=== PATIENT | female | born 1965 | race Caucasian/White ===

== ENCOUNTER 2017-08-11 08:53 | Inpatient (IN) | payer BC, OTHER ==
[2017-08-04 12:08] VITALS: BMI 23.0
[~2017-08-11 08:53] MED LIST: CEFAZOLIN 1 GM/D5W 1 GRAM/50 ML BAG IVPB ONE; ROPIVICAINE 0.2%/MORPH PF/KETOROLAC - 51ML DISP.SYRINGE IA ONE; TRANEXAMIC ACID 1000 MG/10 ML VIAL IVPUSH ONE
[2017-08-11] MEDS ORDERED: ceFAZolin SODIUM 1 GM VIAL ONE ×2 (11:33→13:06)
[2017-08-11] MEDS ORDERED: VANCOMYCIN 1,000 MG VIAL (RESTRICTED TO ID ONLY) ONE (11:33)
[2017-08-11] MEDS: oxyCODONE HCL 10 MG SUSTAINED ACTING TABLET PO ONE (11:35)
[2017-08-11] MEDS: GABAPENTIN 300 MG CAPSULE (FP) PO ONE (11:35)
[2017-08-11] MEDS: CELECOXIB 200 MG CAPSULE PO ONE (11:35)
[2017-08-11] MEDS: PANTOPRAZOLE 40 MG TABLET (FP) PO ONE (11:35)
[2017-08-11] MEDS ORDERED: MIDAZOLAM HCL 2 MG/2 ML SINGLE DOSE VIAL ONE (11:54)
[2017-08-11] MEDS ORDERED: DEXAMETHASONE SOD PHOSPHATE/PF 10 MG/ML SDV ONE (11:55)
[2017-08-11] MEDS ORDERED: ROPIVACAINE HCL 0.5% 30ML VIAL ONE (11:55)
--- NOTE | 2017-08-11 12:14 | HP ---
History & Physical Update - History History: No Change - Physical Physical: No Change - Assessment Assessment: No Change - Plan Plan: No Change
[2017-08-11] MEDS ORDERED: PROPOFOL 20 ML ONE ×4 (12:51→15:40)
[2017-08-11] MEDS ORDERED: TRANEXAMIC ACID 1000 MG/10 ML VIAL ONE ×2 (13:06→15:04)
[2017-08-11] MEDS ORDERED: ePHEDrine SULFATE 50 MG/1 ML AMPULE ONE (13:13)
[2017-08-11] MEDS ORDERED: VANCOMYCIN 1,000 MG VIAL (RESTRICTED TO ID ONLY) IVPB ONE (14:52)
[2017-08-11] MEDS ORDERED: TRANEXAMIC ACID 1000 MG/10 ML VIAL IVPUSH ONE (14:53)
[2017-08-11] MEDS ORDERED: ROPIVICAINE 0.2%/MORPH PF/KETOROLAC - 51ML DISP.SYRINGE IA ONE ×2 (14:54→15:38)
[2017-08-11] MEDS ORDERED: ONDANSETRON 4 MG/2 ML VIAL IVPUSH PRN ×2 (16:21→16:25)
[2017-08-11] MEDS ORDERED: MAGNESIUM HYDROX 2400MG/30ML ORAL SUSPENSION 30 ML CUP PO PRN (16:25)
[2017-08-11] MEDS ORDERED: MAG HYDROX/AL HYDROX/SIMETH 30 ML UNIT-DOSE CUP PO PRN (16:25)
[2017-08-11] MEDS ORDERED: ELECTROLYTE-148 SOLN 1,000 ML IV SCH (16:30)
--- NOTE | 2017-08-11 16:33 | OP ---
Operative Note - Note: Operative Date: 08/11/17 Pre-Operative Diagnosis: Right hip osteoarthritis Operation: Right Makoplasty total hip Implants: Tritanium hemispherical cluster hole shell size 50 D. Torex 6.5 cancellous bone screw. Trident X3 0 degree polyethylene insert size 36 D. AccoladeII 132 neck angle hip stem size 3, 30, 102. Biolox delta ceramic V40 femoral head size 36, +0 Post-Operative Diagnosis: Same as Pre-op Surgeon: Clay Jesus Entry Table Operator: Jacquelyn Higgins Anesthesiologist/CIRCUIT BOARD DRAFTER: Sarai Quintero Anesthesia: Spinal (with block and sedation) Estimated Blood Loss (mls): 200 Fluid Volume Replaced (mls): 2,000
[2017-08-11] MEDS ORDERED: ALPRAZolam 0.25 MG TABLET PO PRN (16:34)
[2017-08-11] MEDS ORDERED: MONTELUKAST NA 10 MG TABLET PO PRN (16:34)
--- NOTE | 2017-08-11 16:36 | SURG ---
Surgery Pharmacy Graduate Intern Note Pharmacy Graduate Intern: Jacquelyn Higgins PA-C Date of Service: 08/11/17 Diagnosis: right hip osteoarthritis Procedure: Makoplasty right total hip I was present for the entirety of the operative procedure. For further detail, please refer to operative report. Visit type - Case Type Case Type: Scheduled Admission - Emergency Emergency Visit: No - New patient This patient is new to me today: Yes Date on this admission: 08/11/17
[2017-08-11] MEDS: KETOROLAC TROMETHAMINE 30 MG/1 ML VIAL IVPUSH SCH ×2 (17:00→23:17)
[2017-08-11] MEDS ORDERED: traMADol HCL 50 MG TABLET PO ONE (17:00)
[2017-08-11] MEDS: ACETAMINOPHEN 1000 MG/100 ML VIAL (NON FORMULARY) IVPB ONE (17:00)
[2017-08-11] MEDS: CEFAZOLIN 1 GM PUSH 1 GM/10 ML DISP.SYRIN IVPUSH SCH (21:06)
[2017-08-11] MEDS: SENNOSIDES/DOCUSATE COMBO (SENNA PLUS) TABLET (UD) PO SCH (21:07)
[2017-08-11] MEDS: oxyCODONE HCL 10 MG SUSTAINED ACTING TABLET PO SCH (21:07)
[2017-08-11] MEDS: GABAPENTIN 300 MG CAPSULE (FP) PO SCH (21:07)
[2017-08-11] MEDS: CELECOXIB 200 MG CAPSULE PO SCH (21:07)
[2017-08-11] MEDS: ASCORBIC ACID 500 MG TABLET (FP) PO SCH (21:08)
[2017-08-11] MEDS: VARENICLINE TARTRATE 0.5 MG TAB PO SCH (21:22)
[2017-08-12] MEDS ORDERED: DEXAMETHASONE SOD PHOSPHATE 10 MG/1 ML VIAL IVPB ONE
[2017-08-12] MEDS: CEFAZOLIN 1 GM PUSH 1 GM/10 ML DISP.SYRIN IVPUSH SCH (03:04)
[2017-08-12] MEDS: KETOROLAC TROMETHAMINE 30 MG/1 ML VIAL IVPUSH SCH ×2 (06:17→12:00)
[2017-08-12] MEDS: CELECOXIB 200 MG CAPSULE PO ONE (07:57)
[2017-08-12] MEDS: GABAPENTIN 300 MG CAPSULE (FP) PO ONE (07:58)
[2017-08-12] MEDS: oxyCODONE HCL 10 MG SUSTAINED ACTING TABLET PO ONE (07:58)
[2017-08-12] MEDS: PANTOPRAZOLE 40 MG TABLET (FP) PO ONE (07:58)
[2017-08-12] MEDS: ELECTROLYTE-148 SOLN 1,000 ML IV SCH ×2 (07:59→16:40)
[2017-08-12] MEDS: ACETAMINOPHEN 1000 MG/100 ML VIAL (NON FORMULARY) IVPB ONE (08:00)
[2017-08-12 08:25] LABS: HEMOGLOBIN 12.9 GM/dl (10.7-15.3); MCH 31.5 pg (25.7-33.7); MCHC 33.1 g/dl (32.0-36.0); MEAN CELL VOLUME 95.2 fl (80-96); MEAN PLT VOLUME 8.2 fl (7.5-11.1); PLATELET COUNT 240 K/MM3 (134-434); RDW 13.6 % (11.6-15.6); WHITE BLOOD COUNT 13.7 K/mm3 (4.0-10.8)
[2017-08-12] MEDS ORDERED: PT OWN MED DRAWER 7, Y5N ONE ×3 (08:39→18:43)
[2017-08-12] MEDS: oxyCODONE HCL 5 MG TABLET PO PRN ×3 (08:43→18:46)
[2017-08-12] MEDS: ASPIRIN 325 MG TABLET PO SCH (08:43)
[2017-08-12 09:08] LABS: ANION GAP 9 (8-16); BLOOD UREA NITROGEN 8 mg/dl (7-18); CALCIUM 8.6 mg/dl (8.4-10.2); CHLORIDE 104 mmol/L (98-107); CO2 24 mmol/L (22-28); CREATININE 0.7 mg/dl (0.6-1.3); GLUCOSE,RANDOM 160 mg/dl (74-106); POTASSIUM 3.8 mmol/L (3.5-5.1); SODIUM 137 mmol/L (136-145)
[2017-08-12] MEDS: PANTOPRAZOLE 40 MG TABLET (FP) PO SCH (09:27)
[2017-08-12] MEDS: MULTIVITAMINS (DAILY MVI) TABLET (FP) PO SCH (09:27)
[2017-08-12] MEDS: ASCORBIC ACID 500 MG TABLET (FP) PO SCH ×2 (09:28→22:07)
[2017-08-12] MEDS: GABAPENTIN 300 MG CAPSULE (FP) PO SCH ×2 (09:28→22:07)
[2017-08-12] MEDS: CELECOXIB 200 MG CAPSULE PO SCH ×2 (09:28→22:07)
[2017-08-12] MEDS: VARENICLINE TARTRATE 0.5 MG TAB PO SCH (09:29)
[2017-08-12] MEDS: oxyCODONE HCL 10 MG SUSTAINED ACTING TABLET PO SCH ×2 (09:29→22:07)
[2017-08-12] MEDS: SENNOSIDES/DOCUSATE COMBO (SENNA PLUS) TABLET (UD) PO SCH ×2 (09:29→22:07)
--- NOTE | 2017-08-12 09:55 | PN ---
Progress Note (short form) - Note Progress Note: 51F POD1 s/p right THR under spinal anesthetic with peripheral nerve blocks for post operative pain. Pt is doing well, states that pain is well controlled. Pt does not report any anesthetic complications. Sensory and motor function intact in bilateral lower extremities.
[2017-08-12] MEDS: traMADol HCL 50 MG TABLET PO SCH ×5 (10:45→23:35)
[2017-08-12] MEDS ORDERED: VARENICLINE TARTRATE 0.5 MG TAB PO SCH (19:00)
--- NOTE | 2017-08-12 22:41 | PN ---
Progress Note (short form) - Note Progress Note: Pt seen and examined. Doing very well. AVSS Selected Entries 08/12/17 14:05 Temperature 97.8 F Pulse Rate 58 L Respiratory 16 Rate Blood Pressure 94/52 O2 Sat by Pulse 97 Oximetry (%) Laboratory Tests 08/12/17 08/12/17 07:00 07:00 WBC 13.7 H Hgb 12.9 Hct 39.0 Plt Count 240 Sodium 137 Potassium 3.8 Chloride 104 Carbon Dioxide 24 Anion Gap 9 BUN 8 Random Glucose 160 H Calcium 8.6 Gen: NAD RLE: c/d/i, NVID A/P 51yo female POD#1 s/p R ZHOU 1. PT/OOB - WBAT RLE 2. D/C home in AM. F/U in 10-14 days.
[2017-08-13] MEDS: oxyCODONE HCL 5 MG TABLET PO PRN ×2 (04:30→08:25)
[2017-08-13] MEDS: traMADol HCL 50 MG TABLET PO SCH ×3 (04:49→11:04)
[2017-08-13 04:54] VITALS: BP 87/49; PULSE 73; TEMP 97.6
[2017-08-13] MEDS: ASPIRIN 325 MG TABLET PO SCH (08:25)
[2017-08-13 08:34] LABS: HEMATOCRIT 35.4 % (32.4-45.2); HEMOGLOBIN 11.6 GM/dl (10.7-15.3); MCH 31.2 pg (25.7-33.7); MCHC 32.7 g/dl (32.0-36.0); MEAN CELL VOLUME 95.2 fl (80-96); MEAN PLT VOLUME 8.5 fl (7.5-11.1); PLATELET COUNT 200 K/MM3 (134-434); RBC 3.72 M/mm3 (3.60-5.2); RDW 13.9 % (11.6-15.6); WHITE BLOOD COUNT 11.1 K/mm3 (4.0-10.8)
[2017-08-13 09:57] LABS: ANION GAP 9 (8-16); BLOOD UREA NITROGEN 11 mg/dl (7-18); CALCIUM 7.6 mg/dl (8.4-10.2); CHLORIDE 104 mmol/L (98-107); CO2 24 mmol/L (22-28); CREATININE 0.6 mg/dl (0.6-1.3); GLUCOSE,RANDOM 92 mg/dl (74-106); POTASSIUM 3.3 mmol/L (3.5-5.1); SODIUM 137 mmol/L (136-145)
[2017-08-13] MEDS: ASCORBIC ACID 500 MG TABLET (FP) PO SCH (11:03)
[2017-08-13] MEDS: PANTOPRAZOLE 40 MG TABLET (FP) PO SCH (11:03)
[2017-08-13] MEDS: CELECOXIB 200 MG CAPSULE PO SCH (11:03)
[2017-08-13] MEDS: GABAPENTIN 300 MG CAPSULE (FP) PO SCH (11:04)
[2017-08-13] MEDS: SENNOSIDES/DOCUSATE COMBO (SENNA PLUS) TABLET (UD) PO SCH (11:05)
[2017-08-13] MEDS: MULTIVITAMINS (DAILY MVI) TABLET (FP) PO SCH (11:05)
--- NOTE | 2017-08-13 11:16 | DS ---
Physical Examination Vital Signs: Vital Signs Temperature 97.6 F 08/13/17 04:53 Pulse Rate 73 08/13/17 04:53 Respiratory Rate 18 08/13/17 04:53 Blood Pressure 87/49 08/13/17 04:53 O2 Sat by Pulse Oximetry (%) 95 08/13/17 04:53 Labs: CBC, BMP 08/13/17 08:20 08/13/17 08:20 Discharge Summary Reason For Visit: OSTEOARTHRITIS RIGHT HIP Current Active Problems Osteoarthritis of right hip (Acute) Procedures: Principal: Right ZHOU Hospital Course: Admitted for elective surgery. Procedure performed without complications. Pt received postoperative antibiotic prophylaxis and DVT ppx. Ambulated with physical therapy. Stable for discharge home with outpatient followup. Condition: Stable - Instructions Diet, Activity, Other Instructions: Dr Jesus - Hip Replacement Instructions Keep the Aquacel dressing on until removed by Dr. Jesus in 10-14 days - it is antibacterial and waterproof and you can shower with it on. Call the office for a follow-up appointment with Dr. Jesus in 10-14 days. Take one Aspirin 325mg daily for 6 weeks to prevent blood clots in your legs. Take one Pantoprazole 40mg daily for 6 weeks to protect against heartburn and ulcers. Take Celebrex 200mg twice daily for 30 days to reduce swelling and inflammation. Take Cephalexin 500mg three times a day for 2 weeks to protect against skin infection while the incision heals. Take a multivitamin, stool softener, and extra vitamin C supplement daily. For pain: *Mild pain (1-3/10): Take 1 Tramadol tablet every 4 hours as needed. Moderate pain (4-6/10): Take 1 Tramadol tablet and 1 Percocet tablet every 4 hours as needed. Severe pain (7-10/10): Take 1 Tramadol tablet and 2 Percocet tablets every 4 hours as needed. Activity: You can put as much weight on the operative leg as you want. For the first 6 weeks, all you need to do is walk around the house, go up/down stairs, and sit down/get up. After 6 weeks when everything is healed (and bone has grown into the implant) you will be sent for more intensive outpatient physical therapy. Always use a walker or cane for balance and to prevent falls. Disposition: VNS/HOME HEALTH CARE - Home Medications Comprehensive Discharge Medication List: Ambulatory Orders Varenicline Tartrate [Chantix -] 0.5 mg PO BID 08/04/17 Zolpidem Tartrate [Ambien] 10 mg PO HS PRN 08/04/17 Alprazolam [Xanax] 0.25 mg PO DAILY PRN 08/11/17 Montelukast Sodium [Singulair] 10 mg PO DAILY PRN 08/11/17 Ascorbic Acid [Vitamin C -] 500 mg PO BID tablet 08/12/17 Aspirin [ASA -] 325 mg PO DAILY@0800 tablet 08/12/17 Celecoxib [CeleBREX -] 200 mg PO BID #60 capsule 08/12/17 Cephalexin [Keflex] 500 mg PO TID #42 capsule 08/12/17 Multivitamins [Multivit ([facility] Formul[facility])] 1 tab PO DAILY tab 08/12/17 Oxycodone HCl/Acetaminophen [Percocet 5-325 mg Tablet] 1 - 2 tab PO Q4H PRN #60 tablet MDD 8 08/12/17 Pantoprazole Sodium [Protonix -] 40 mg PO DAILY #40 tablet.ec 08/12/17 Sennosides/Docusate Sodium [Pericolace -] 1 tablet PO BID tablet 08/12/17 Tramadol HCl [Ultram -] 50 mg PO Q4H PRN #90 tablet MDD 6 08/12/17
--- NOTE | 2017-08-14 13:22 | SPEC ---
DATE OF OPERATION: 08/11/2017 PREOPERATIVE DIAGNOSIS: Right hip osteoarthritis. POSTOPERATIVE DIAGNOSIS: Right hip osteoarthritis. PROCEDURE: Right total hip replacement with MAKOplasty robotic navigation. SURGEON: Tomas Bruce MD ASSEMBLER LATCHES AND SPRINGS: [place] ANESTHESIA: Spinal plus sedation. ESTIMATED BLOOD LOSS: 200 mL. COMPLICATIONS: None. SPECIMENS: Resected bone was sent for pathology analysis. DISPOSITION: The patient was transferred to the PACU in stable condition. IMPLANTS USED: Xiomara Accolade 2 size 3 femoral components, Tritanium 50-mm acetabular component with 30-mm screw, and polyethylene liner, Biolox ceramic 36 mm + 0 mm femoral head ball. INDICATIONS: This is a 51-year-old female who presented to the office complaining of severe right hip pain and decreased range of motion. She was seen and examined by Dr. Bruce and diagnosed with right hip osteoarthritis. The patient was initially treated nonoperatively with injections, medications, and physical therapy, but failed conservative management. She was subsequently indicated for a right total hip replacement. The risks, benefits, and alternatives to the procedure were explained to the patient in great detail, and she elected to proceed with surgery. DESCRIPTION OF PROCEDURE: On the day of surgery, the patient was taken to the operating room and placed on the OR table. Spinal anesthesia was administered by the anesthesiologist. The patient was then positioned in the lateral decubitus position on the table and all bony prominences were padded. An axillary roll was placed. The operative hip was then prepped and draped in the usual sterile fashion and intravenous antibiotics were given for infection prophylaxis. A surgical time-out was then performed with the team, and the patients identity, procedure, side, availability of implants, and the administration of antibiotics were confirmed. An approximately 15-cm longitudinal incision was made through the skin centered on the greater trochanter of the hip. This dissection was carried down through the subcutaneous tissues to the deep fascia. This fascia was then incised and a Cobra was placed around the inferior femoral neck. Electrocautery was used to reflect the anterior 40% of the gluteus medius and minimus starting at the musculotendinous junction and leaving a cuff for closure. This was reflected to reveal the capsule of the hip joint. An anterior capsulectomy was performed and the femoral head and neck were visualized. Grade 4 changes were noted diffusely throughout the joint. At this point, three small stab incisions were made superior to the main incision along the iliac crest. Three self-drilling Steinmann pins were then placed and the [employer] pelvic array was attached. Reference points on the limb were then entered into the robotic device and the limb length deficiency, offset, and femoral neck resection level were then calculated by the software. The hip was then dislocated with traction and external rotation. An oscillating saw was used to make the femoral neck cut at the level previously templated, and the femoral head was removed. Attention was then turned to the acetabulum. Retractors were then placed around the acetabulum and the labrum was removed. An acetabular checkpoint pin and the [employer] software were used to register the contours of the acetabulum. The acetabulum was then reamed in a single stage to the preoperatively templated size using the [employer] robotic arm. The appropriately sized cup was then impacted and had solid fixation as well as the preset inclination and version of 40 and 20 degrees, respectively. A polyethylene liner was then placed in the cup. Attention was then turned back to the femur, which was externally rotated for improved visualization. A femoral neck elevator was used to present the femoral neck cut, a box osteotome was used to enter the femoral canal, and a canal finder was used to go down the femoral shaft. The Moose broaches were used sequentially until the optimal scratch fit was achieved. This correlated with the preoperatively templated size. From here, several different offset head and neck configurations were tested until excellent stability and length were obtained. These measurements were quantified using the [employer] software. All trial components were then removed, the femur was copiously irrigated, and the final components were placed. Leg length and stability were checked again and found to be excellent. Irrigation was performed again. Wound closure was started by repairing the abductor muscles with a no. 2 FiberWire stitch in a Krackow configuration passed through bone tunnels in the greater trochanter and tied over a bony bridge. This repair was then reinforced with a 0 V-Loc 180 barbed suture. Next, no. 1 Polysorb and 0 V-Loc 180 were used to close the fascia. The deep subcutaneous tissue was closed with no. 1 Polysorb sutures, and 2-0 Polysorb was used for the superficial subcutaneous tissue. The skin was closed using both 3-0 V-Loc 90 suture in a running subcuticular fashion and SwiftSet skin adhesive. The Moose array and pins were removed from the iliac crest and the stab incision sites were irrigated and closed with 4-0 Polysorb sutures and [employer] skin adhesive. Once this was completed, a sterile dressing was applied. The patient was then awakened and taken to the PACU in stable condition. ADDENDUM: After final implants were placed, the wound was thoroughly irrigated with normal saline containing antibiotics via pulsatile lavage. A 3-minute dilute Betadine soak was then performed, and then, following this, the wound was again irrigated with the pulse lavage device using antibiotic saline, and then, wound closure was begun. TOMAS BRUCE M.D. [id number]
--- NOTE | 2017-08-19 16:28 | PATH ---
Surgical Pathology Report Patient Name: MARCO MARCOS Med. Rec. #: [id number] /Age/Gender: 1965 (Age: 51) / F Account: [id number] Location: [facility] MED[facility] Taken: 08/11/2017 Received: 08/11/2017 Reported: 08/19/2017 Physicians: Clay Jesus M.D. Specimen(s) Received RIGHT FEMORAL HEAD Clinical History Right hip osteoarthritis Final Diagnosis FEMORAL HEAD, RIGHT, TOTAL HIP REPLACEMENT: DEGENERATIVE JOINT DISEASE. Electronically Signed Jacquelyn Pabon M.D. Gross Description Received in formalin, labeled "right femoral head," is a 4.5 x 4.5 x 4.2 cm. femoral head with a 1.1 cm in length portion of femoral neck attached. The margin of resection is smooth. There is a 3 cm in greatest dimension area of eburnation present. The remaining articular surface is hudson-yellow and diffusely granular and nodular. The underlying trabecular bone is yellow and hard. A vaccine customer representative section is submitted in one cassette, following decalcification. 08/13/201708/13/2017
== END 2017-08-13 11:43 | disposition home health service (06) | DRG 301 ==
LOC: FM/S 10:32
PROVIDERS: ADMIT Student in an Organized Health Care Education/Training Program; ATTEND Student in an Organized Health Care Education/Training Program
PROC: 8E0W0CZ Robotic Assisted Procedure of Trunk Region, Open Approach (ICD-10-PCS; 2017-08-11)
PROC: 0SR904Z Replacement of Right Hip Joint with Ceramic on Polyethylene Synthetic Substitute, Open Approach (ICD-10-PCS; principal; 2017-08-11 12:40)
DX: M16.11 Unilateral primary osteoarthritis, right hip (principal)
CPT/HCPCS: 36415; 73502-TC-RT; 80048; 84703; 85027; 94010; 94760; 97116-GP; 97162-GP; J1100

== ENCOUNTER 2019-08-19 10:11 | Day surgery (SDC) | payer OTHER ==
[2019-08-17 13:09] VITALS: BMI 22.1
--- NOTE | 2019-08-19 07:37 | OP ---
Operative Note - Note: Operative Date: 08/19/19 Pre-Operative Diagnosis: Left medial meniscus tear Operation: Left knee arthoscopy with partial medial meniscectomy Post-Operative Diagnosis: Same as Pre-op Surgeon: Wang Cuba Stamp Pad Maker: Mulu Perez Anesthesia: General Operative Report Dictated: Yes
[2019-08-19] MEDS ORDERED: MIDAZOLAM HCL 2 MG/2 ML SINGLE DOSE VIAL ONE (13:21)
[2019-08-19] MEDS ORDERED: PROPOFOL 20 ML ONE ×2 (13:21)
[2019-08-19] MEDS ORDERED: BUPIVACAINE HCL/PF 0.5% (5MG/ML) 10 ML VIAL ONE (13:22)
[2019-08-19] MEDS ORDERED: LIDOCAINE HCL/PF 2% SDV 5ML VIAL ONE (13:23)
[2019-08-19] MEDS ORDERED: ONDANSETRON 4 MG/2 ML VIAL ONE (13:24)
[2019-08-19] MEDS ORDERED: DEXAMETHASONE SOD PHOSPHATE 4 MG/1 ML VIAL ONE (13:24)
[2019-08-19] MEDS ORDERED: KETOROLAC TROMETHAMINE 30 MG/1 ML VIAL ONE (13:24)
[2019-08-19] MEDS ORDERED: BUPIVACAINE HCL/PF 0.5% (5 MG/ML) 30 ML VIAL IJ ONE (14:05)
[2019-08-19] MEDS ORDERED: PROMETHAZINE HCL 25 MG/1 ML VIAL IVPUSH PRN (14:46)
[2019-08-19] MEDS ORDERED: ONDANSETRON 4 MG/2 ML VIAL IVPUSH PRN (14:46)
[2019-08-19] MEDS ORDERED: oxyCODONE HCL 5 MG TABLET PO PRN ×2 (14:46)
[2019-08-19 16:54] VITALS: BP 119/60; PULSE 57
[2019-08-19 17:59] VITALS: TEMP 97
--- NOTE | 2019-08-20 08:51 | OP ---
DATE OF OPERATION: 08/19/2019 POSTOPERATIVE DIAGNOSIS: Left knee medial meniscal tear. POSTOPERATIVE DIAGNOSIS: Left knee medial meniscal tear. PROCEDURE: Left knee arthroscopy with partial medial meniscectomy. SURGEON: Wang Calles MD MUTUAL FUND MANAGER: Mulu Perez, physician orthotic assistant, whose skilled full assistance was necessary for the safe and timely performance of this procedure. ANESTHESIA: General. POSTOPERATIVE CONDITION: Stable. COMPLICATIONS: None. INDICATIONS: This is a pleasant woman who had been suffering from medial knee pain. She was initially treated nonoperatively with a home exercise program. She had persistent pain in the medial aspect of the knee. She elected for arthroscopic care. Treatment options including further nonoperative versus operative care were discussed. Operative risks were reviewed in detail including bleeding, infection, neurovascular injury, need for further surgery, postoperative pain and stiffness, progression of osteoarthritis. We discussed medical risks such as heart attack, stroke, DVT, PE, and . I addressed the use of perioperative antibiotic and DVT prophylaxis. I addressed all of the patient's questions and concerns. She voiced understanding and elected to proceed. DESCRIPTION OF PROCEDURE: The patient was brought to the operating room where general anesthetic was administered. Left lower extremity was then prepped and draped in the usual sterile fashion. A preoperative dose of antibiotics was given, and the usual time-out procedure was performed. The skin portals were then marked out. They were anesthetized subcutaneously with 0.25% Marcaine. An 11 blade was now used to establish the lateral portal. The arthroscope was passed into the knee. Examination of the suprapatellar pouch demonstrated no lesions. Passing into patellofemoral joint demonstrated no articular lesions. The arthroscope was passed in the notch. Here, the ACL and PCL were visualized to be intact. The arthroscope was now passed into the medial compartment. A medial portal was established under spinal needle localization. A meniscal tear was noted along the mainly posterior horn but extending up to the body of the meniscus. The tear was debrided utilizing the meniscal biters as well as the mechanical shaver. At this point, the arthroscope was passed to the lateral compartment. Here, no articular lesions and no meniscal lesions were seen. At this point, the excess fluid was withdrawn from the joint. The portals were sutured using 3-0 nylon. Sterile dressings were placed. The patient was extubated and transferred to recovery room in stable condition. WANG CALLES M.D. [id number]
== END 2019-08-19 15:30 | disposition home or self-care (01) ==
LOC: FASU 10:11
PROVIDERS: ATTEND Orthopaedic Surgery Sports Medicine
PROC: 0SBD4ZZ Excision of Left Knee Joint, Percutaneous Endoscopic Approach (ICD-10-PCS; principal; 2019-08-19 14:05)
DX: S83.242A Other tear of medial meniscus, current injury, left knee, initial encounter (principal); X58.XXXA Exposure to other specified factors, initial encounter; Y93.9 Activity, unspecified; Y92.9 Unspecified place or not applicable
CPT/HCPCS: 84703; 94760